=== PATIENT | female | born 1950 | race Caucasian/White ===

== ENCOUNTER → 2018-08-15 | Outpatient (CLI) | payer MEDICARE ==
[~2018-08-15] MED LIST: CALC600T72 PO; LOR5 PO; OMEG300C3 PO
--- NOTE | 2018-08-16 10:47 | RADIOLOGY IMAGING REPORT ---
FACILITY: [facility] PATIENT NAME: NAVEED ALICIA : [id number] MR: [id number] V: [id number] EXAM DATE: [id number] ORDERING PHYSICIAN: MEAGAN ENAMORADO TECHNOLOGIST: Sherice Quinonez PROCEDURE:BILATERAL DIGITAL SCREENING MAMMOGRAM WITH CAD ASSISTED INTERPRETATION & 3D TOMOSYNTHESIS COMPARISON:Prior mammograms 07/28/17, 07/14/16. INDICATIONS:SCREENING FINDINGS: A small amount of fibroglandular tissue is seen throughout the breasts. The parenchymal pattern has remained stable allowing for difference in mammographic technique & patient positioning. There is no evidence of malignant appearing mass, malignant appearing calcifications or other secondary sign of malignancy in either breast. DIAGNOSTIC CATEGORY 1--NEGATIVE. RECOMMENDATIONS: ROUTINE MAMMOGRAM AND CLINICAL EVALUATION. IMPRESSION: BIRADS 1: Negative. No significant abnormality is seen. Dictated by: Donna Johnson M.D. on 08/15/2018 at 14:21 Transcribed by: JIMI on 08/15/2018 at 14:34 Approved by: Donna Johnson M.D. on 08/16/2018 at 10:46 [facility]
== END ==
LOC: MAMO 01:45
PROVIDERS: ATTEND Nurse Practitioner Family
DX: Z12.31 Encounter for screening mammogram for malignant neoplasm of breast (principal)
CPT/HCPCS: 77063; 77067